=== PATIENT | female | born 1990 | race Caucasian/White ===

== ENCOUNTER 2021-04-17 10:15 | Emergency (ER) | payer BC, SELFPAY ==
[2021-04-17 10:41] VITALS: BP 134/87; PULSE 82; RESP 18; TEMP 36.7; O2SAT 99; BMI 19.1
--- NOTE | 2021-04-17 11:21 | ECG_ITS ---
Test Reason : CP Blood Pressure : / mmHG Vent. Rate : 071 BPM Atrial Rate : 071 BPM P-R Int : 156 ms QRS Dur : 098 ms QT Int : 416 ms P-R-T Axes : 067 088 042 degrees QTc Int : 452 ms Sinus rhythm with marked sinus arrhythmia Possible Left atrial enlargement Incomplete right bundle branch block Abnormal ECG No previous ECGs available Referred By: Diya Garcia Electronically Signed By:TANNER MENDIOLA
--- NOTE | 2021-04-17 11:43 | ED_ITS ---
HPI - General Adult General Chief complaint: General Medical Stated complaint: medication reaction Time Seen by Provider: 04/17/21 11:06 Source: patient Mode of arrival: ambulatory Limitations: no limitations History of Present Illness HPI narrative: 30-year-old female with a history of Crohn's disease who got her COVID booster 2 days ago presents with left sided chest pain that started at 5:30 a.m. this morning. The chest pain woke her from sleep. She feels a tightness in her left chest that radiates to her left back. When the pain woke her from sleep the pain was sharp and 7/10, now the pain is 4/10, and has been constant. The pain is worse with movement. She feels her chest is tight when she tries to take a deep breath. No shortness of breath, no nausea, no diaphoresis. Patient got her COVID booster at 11:00 a.m. 2 days ago, felt fatigued, miladys low- grade headache, and some arm pain. Her headache was gradual in onset of frontal headache 3/10, no visual changes, no stiff neck, no fevers. Reports she has worsening joint pain, that comes along with her rheumatological disease when she is having a flare. Patient is on Stelara for Crohn's, no family history of heart disease, states there is a clotting disorder on her mother side of the family, states her brother who has been treated with chemotherapy recently had a pulmonary embolism. complaint: chest pain Onset (ago): hour(s) (6) Radiation: back Severity: moderate Quality: stabbing Pain Consistency: constant Relieving factors: none Exacerbating factors: movement Associated symptoms: headaches Treatments prior to arrival: none Related Data Previous Rx's Medication Instructions Recorded ketorolac 10 mg tablet 10 mg PO Q6H 3 Days #12 tab 04/17/21 Allergies Allergy/AdvReac Type Severity Reaction Status Date / Time No Known Allergies Allergy Verified 04/17/21 10:54 Review of Systems Constitutional: Constitutional: Reports body ache(s), Denies chills, Reports fatigue, Denies fever(s) and Reports headache(s) Eyes: Eyes: Denies blurry vision, Denies change in vision and Denies diplopia ENT: Denies dizziness, Denies otalgia, Denies facial pain, Reports headache(s), Denies nasal congestion, Denies nasal discharge, Denies neck pain and Denies sore throat Cardiovascular: Cardiovascular: Reports chest pain, Reports chest pain at rest, Denies Epigastric Pain, Denies syncope, Denies leg edema, Denies lightheadedness, Denies radiating jaw, neck or arm pain, Denies palpitations, Denies dyspnea and Denies paroxysmal nocturnal dyspnea Respiratory: Respiratory: Denies chest congestion, Denies cough and Denies dyspnea Gastrointestinal: Gastrointestinal: Denies abdominal pain, Denies constipation, Denies diarrhea and Denies vomiting Genitourinary: Genitourinary: Reports no additional female genitourinary complaints Musculoskeletal: Musculoskeletal: Reports back pain, Reports arthralgias (generalized), Denies neck pain, Denies numbness, Denies stiffness and Denies tingling Neurologic: Denies dizziness, Denies syncope, Reports headache(s), Denies numbness and Denies tingling Endocrine: Endocrine: Reports fatigue and Denies palpitations PMFSH Past Medical History Medical History (Updated 04/17/21 @ 12:53 by CAROLYN Grace) Acute Crohn's disease Social History Social History Advance Directives: No Advance Directives Information Provided: No Patient : No Physical Exam Vital Signs: Vital Signs: Last Vital Signs Temp 98.1 F 04/17/21 10:41 Pulse 82 04/17/21 10:41 Resp 18 04/17/21 10:41 BP 134/87 04/17/21 10:41 Pulse Ox 99 04/17/21 10:41 Body Mass Index 19.1 Const: General: cooperative, healthy appearing, comfortable, no acute distress, well developed, alert and awake Nutritional Appearance: well nourished Orientation/consciousness: patient oriented x3 Limitations: no limitations HENMT: Head: Yes normal to inspection, Yes normocephalic and Yes atraumatic Face and sinus: Yes normal facial exam Mouth: Normal oral and palatal mucosa present Throat: Yes posterior oropharynx normal Eyes: Pupils: Equal, round and reactive pupils present EOM: EOMs intact bilaterally Neck: Neck: Yes normal visual inspection, Yes full ROM, Yes no lymphadenopathy, Yes no meningeal signs and Yes supple Chest: Chest palpation & inspection: normal inspection of the chest, abnormal inspection of the chest (Tender to palpate left costal junction) Negative for no swelling and no crepitus Resp: Effort & Inspection: normal respiratory effort Auscultation: clear to auscultation bilaterally, no crackles, no rales, no rhonchi and no wheezes Cardio: Rate: regular rate Rhythm: regular rhythm Heart sounds: S1 normal heart sound present and S2 normal heart sound present GI: Inspection: Yes normal to inspection Palpation (GI): Soft to palpation, nontender and no guarding : General: Yes no CVA tenderness Back/Spine/Pelvis: Back: no CVA tenderness Cervical Spine: normal cervical lordosis and cervical ROM normal Thoracic/Lumbar Spine: No thoracic spinal tenderness and No lumbar spinal tenderness Skin: General skin exam: no rashes or lesions noted Neuro: General: patient oriented x3 and no meningeal signs Cranial nerves: Yes Equal, round and reactive pupils present Extrem: General: Yes normal to inspection, Yes full ROM and Yes no clubbing, cyanosis or edema Course Course Course Narrative: A 22 year year old female presents with left-sided chest pain that woke her from sleep 2 days after having a COVID booster. Patient has Crohn's disease and is on Stelara. Patient has a family history of blood clots. Patient states worsening chest pain with deep breath. EKG is unremarkable. Getting D-dimer and troponin. Patient reports worsening joint pain since her COVID vaccination. On exam, chest pain is reproducible on left side of chest. Patient also has tenderness and the left thoracic paraspinous muscles. D-dimer and troponin are negative. Troponin drawn more than 6 hours after onset of chest pain, we do not need to repeat Patient's pain is reduced with Tylenol. Will give Toradol injection, have patient follow-up with PCP. Counseled patient that D-dimer is not 100%, and can miss blood clots. Counseled patient if she had increasing chest pain, felt short of breath, she needs to return to the emergency room Medical Decision Making Lab Data Labs: Lab Results 04/17/21 04/17/21 04/17/21 Range/Units 11:53 11:53 12:28 D-Dimer < 200 NG/ML Troponin I High Sens < 3.5 (<3.5-17.0) ng/L Urine Test NEGATIVE (NEGATIVE) ECG Data Interpretation: Sinus rhythm with a rate of 71, sinus arrhythmia. Pr interval 156, QRS 98, QTC 452, no ST elevations or depressions, no T-wave changes Discharge Plan Discharge Clinical Impression: Acute chest wall pain Patient Disposition: Home, Self-Care Instructions: Chest Wall Pain (ED) Additional Instructions: Please call your primary care provider and make a follow-up appointment. Please stay out of work for the next 2 days. Please fill the prescription for ketorolac and take for the next 3 days. As we discussed, the test for blood clots is not 100% accurate. Therefore, if you have worsening chest pain, shortness of breath, if you find you are unable to take a deep breaths, please return to the emergency room. Please return to emergency room for any new or concerning symptoms. Prescriptions: New ketorolac 10 mg tablet 10 mg PO Q6H 3 Days Qty: 12 RF: 0 Stand Alone Forms: Work/School Release
[2021-04-17 12:18] LABS: D Dimer < 200 NG/ML
[2021-04-17] MEDS: Acetaminophen 325 MG TABLET 975 MG PO (12:29)
[2021-04-17 12:39] LABS: Troponin-I High Sensitivity < 3.5 ng/L (<3.5-17.0)
[2021-04-17 12:50] LABS: UPreg QC Valid YES; Urine Pregnancy NEGATIVE (NEGATIVE)
[2021-04-17] MEDS: Ketorolac Tromethamine 15 MG/ML VIAL IM (13:15)
[2021-04-17 13:17] VITALS: RESP 18
== END 2021-04-17 13:37 | disposition home or self-care (01) ==
PROVIDERS: Physician Assistant; Emergency Provider Emergency Medicine; PCP Internal Medicine
DX: R07.89 Other chest pain (principal); K50.90 Crohn's disease, unspecified, without complications; Z79.899 Other long term (current) drug therapy
CPT/HCPCS: 36415; 81025; 84484; 85379; 93005; 96372; 99284; J1885

== ENCOUNTER 2021-04-21 08:15 | Emergency (ER) | payer BC, SELFPAY ==
--- NOTE | ~2021-04-21 | CT_ITS ---
EXAMINATION: CT ABDOMEN AND PELVIS WITHOUT CONTRAST CLINICAL INFORMATION: Right CVA tenderness COMPARISON: None TECHNIQUE: Multidetector volumetric imaging was performed from the superior aspect of the liver through the pubic symphysis. Sagittal and coronal reformatted images were obtained on the technologist's workstation. This CT examination was performed using dose optimization techniques as appropriate, variously including the following: *Automated exposure control *Adjustment of mA and/or kV according to patient size (this includes techniques or standardized protocols for targeted exams where dose is matched to indication/reason for exam; i.e. extremities or head) *Use of iterative reconstruction technique DLP: 383 mGy-cm FINDINGS: LUNG BASES: The visualized lung bases are unremarkable. LIVER, GALLBLADDER, AND BILIARY TREE: The liver is normal in size, shape, and attenuation. There is a 1 cm low-attenuation lesion in the right lobe of the liver axial image 24 series 3 probably representing a cyst. There is a second 5 mm peripheral low-attenuation lesion in the more inferior right lobe liver axial image 43 series 3. Hounsfield units without contrast measure 33 not compatible with a simple cyst. The liver is otherwise unremarkable. The gallbladder is unremarkable. There is no biliary duct dilatation. PANCREAS: Unremarkable. SPLEEN: Unremarkable. ADRENAL GLANDS: Unremarkable. KIDNEYS AND URETERS: The kidneys are normal in size, shape, and attenuation. No hydronephrosis, hydroureter, or calculi seen. No perinephric stranding. BLADDER: Unremarkable. GASTROINTESTINAL TRACT: There are postsurgical changes to the cecum/right colon. Small and large bowel is otherwise unremarkable. The appendix is not seen and may been removed. The appendix is unremarkable. ABDOMINAL WALL: No significant hernia is appreciated. LYMPH NODES: There are no enlarged lymph nodes. VASCULAR: Unremarkable. PELVIC VISCERA: There is trace fluid in the pelvis. The uterus and adnexa are otherwise unremarkable. OSSEOUS STRUCTURES: Unremarkable. CT/CT abdomen pelvis wo con IMPRESSION: No stone or hydronephrosis. Probable small liver cyst. 6 mm low-attenuation liver lesion not compatible with a cyst in the right lobe of the liver. This uncertain whether this represents a complex cyst or solid lesion. This could be further evaluated with liver MRI if clinically indicated. Surgical changes to the cecum/right colon. Trace fluid in the pelvis.
[2021-04-21 09:24] VITALS: BP 122/60; PULSE 50; RESP 18; TEMP 36.8; O2SAT 100; BMI 19.1
--- NOTE | 2021-04-21 09:41 | ED_ITS ---
HPI - Abdominal Pain General Chief Complaint: Urogenital-Female Stated Complaint: flank pain Time Seen by Provider: 04/21/21 09:35 Source: patient Mode of arrival: ambulatory Limitations: no limitations History of Present Illness HPI narrative: 30-year-old female with a past medical history of Crohn's disease currently on Stelara presenting to the ED with complaints of right back/right flank/right abdominal pain with associated nausea/vomiting since last night worse today that she describes as a stabbing sensation. Denies fevers, chills, dizziness, headaches, neck pain/stiffness, sore throat, cough, chest pain, shortness of breath, dysuria, hematuria, diarrhea, constipation, black or bloody stools, recent travel or sick contacts, bad food exposure or any other symptoms complaints or concerns at this time. MD elicited complaint: abdominal pain and flank pain Pertinent past history: other (Crohn's disease) Onset (ago): day(s) (Since last night) Pain Consistency: constant Location: R flank and other (Right back and abdomen) Severity: moderate Pain scale (0-10): 10 Quality: stabbing Radiation: none Exacerbating factors: nothing Relieving factors: nothing Associated symptoms: nausea and vomiting Related Data Date of Last Menstrual Period: 04/21/21 Patient : No Previous Rx's Medication Instructions Recorded ketorolac 10 mg tablet 10 mg PO Q6H 3 Days #12 tab 04/17/21 acetaminophen 500 mg tablet 1,000 mg PO QID PRN #14 tab 04/21/21 (Tylenol Extra Strength) cyclobenzaprine 10 mg tablet 10 mg PO Q8H #10 tab 04/21/21 ibuprofen 800 mg tablet 800 mg PO Q8H PRN #14 tab 04/21/21 ondansetron HCl 4 mg tablet 4 mg PO Q8H PRN #14 tab 04/21/21 (Zofran) Allergies Allergy/AdvReac Type Severity Reaction Status Date / Time No Known Allergies Allergy Verified 04/17/21 10:54 Review of Systems Review of Systems Constitutional : No Weight loss, No Fever, No Chills, No Night Sweats, No Fatigue, NoMalaise ENT/Mouth: No ear pain, No sore throat, No Difficulty swallowing Cardiovascular : No Chest Pain, No SOB, No Dyspnea on Exertion, No Orthopnea, NoEdema, No Palpitations Respiratory : No Cough, No Sputum, No Wheezing, No Dyspnea Gastrointestinal : Positive nausea/vomiting/abdominal pain/flank pain, No Diarrhea, No blood streaked emesis, No coffee-ground emesis, No gross luzma temesis, No blood streak stool, No gross hematochezia, No Melena Genitourinary : No irregular bleeding, No Dysuria, No Urinary Frequency, No Hematuria,No Urinary Incontinence, No Urgency, No Flank Pain Musculoskeletal : No joint pain, No Myalgias, No Joint Swelling Skin : No Skin Lesions, No rash Neuro : No Weakness, No Numbness, No Paresthesias, No Loss of Consciousness, NoDizziness, No Headache Psych : No Social Issues, Heme/Lymph: No Bruising, No Bleeding,No Lymphadenopathy Endocrine : No Polyuria, No Polydipsia, No Temperature Intolerance Yes all other systems are reviewed and are negative Physical Exam Vital Signs: Vital Signs: Last Vital Signs Temp 99.1 F 04/21/21 12:07 Pulse 43 L 04/21/21 12:07 Resp 14 04/21/21 12:07 BP 103/59 L 04/21/21 12:07 Pulse Ox 97 04/21/21 12:07 Body Mass Index 19.1 vital signs have been reviewed as normal and appeared to be correct. Blood pressure normal. Heart rate normal. Respiration rate normal. Temperature normal. Oxygen saturation normal. Appearance: Alert. Oriented X3. No acute distress. Head: Normal external exam. Normocephalic. Eyes: PERRLA. EOMI. Conjunctiva and sclera normal. Eyelids normal. ENT: Pharynx normal. Uvula midline. Moist mucous membranes. Neck: Normal inspection. Neck supple. FROM. No adenopathy. No meningeal signs. CVS: Normal heart rate and rhythm. Heart sound normal. No murmurs noted. Pulses normal throughout. Respiratory: No respiratory distress. Painless inspiration. Breath sounds normal. No wheezes/rales/rhonchi noted. Chest nontender. No accessory muscle usage noted or decreased air movement noted. Abdomen: Soft and moderate tenderness to palpation to right abdomen/right flank with guarded Nondistended. No rigidity. Bowel sounds normal in all 4 quadrants. No distention noted. No organomegaly noted. No visible injury noted. No rebound tenderness. Negative Rovsing sign. Negative obturator's sign. Ne gative psoas sign. Negative Zapata sign. Back: Positive Right CVA tenderness. No left CVA tenderness. Full range of motion noted. No rashes/lesion/induration/fluctuance or signs of infection noted. Skin: Skin warm and dry. Normal skin color. Normal skin turgor. No rashes/lesions/lacerations noted. Extremities: Extremities exhibit normal range of motion. Extremities nontender. Neuro: Oriented X 3. No motor deficit. No sensory deficit. Reflexes normal. Normal steady gait. Course Course Course Narrative: 9:35am - 30-year-old female with a past medical history of Crohn's disease currently on Stelara presenting to the ED with complaints of right back/right flank/right abdominal pain with associated nausea/vomiting since last night worse today that she describes as a stabbing sensation. Plan: Labs, UA, UHCG, CT scan abdomen pelvis without IV contrast. Provide a L of IV fluids with 30 mg of IV Toradol and 4 mg of Zofran and re-evaluate. Reevaluation(s) Reevaluation #1: - labs reviewed and all within normal limits. UA within normal limits no evidence of UTI. Negative test. Patient negative for COVID/RSV/flu. - CT scan of abdomen and pelvis without IV contrast revealed probable small liver cyst 6 mm they are recommending outpatient liver MRI if indicated. Otherwise no other acute processes. Patient does not have an appendix. - therefore patient most likely viral syndrome versus muscle strain will DC home with symptomatic treatment along with instructions to return if any new or wor sening symptoms to follow up with her primary care provider with the CT scan results that I printed out and gave her in her hand for further evaluation treatment for her possible liver cyst. Patient understands agrees this plan. Time: 12:54 [facility] - Abdominal Pain Medical Records Attestation: I reviewed the patient's medical records. Lab Data Attestation: I reviewed the patient's lab results. Result diagrams: 04/21/21 10:15 04/21/21 10:15 Labs: Lab Results 04/21/21 04/21/21 04/21/21 Range/Units 10:14 10:14 10:15 WBC 9.4 (4.8-10.8) X10*3/uL RBC 3.71 L (4.20-5.50) X10*6/uL Hgb 11.9 L (12.0-16.0) g/dl Hct 35.1 L (37-47) % MCV 94.6 (80-98) fL MCH 32.1 (27.0-33.0) pg MCHC 33.9 (31.0-35.0) g/dl RDW 12.6 (11.0-16.0) % Plt Count 235 (160-400) X10*3/uL MPV 9.6 (9.4-12.3) fL Immature Gran % (Auto) 0.3 (0.0-0.4) % Neut % (Auto) 79.8 H (45-73) % Lymph % (Auto) 11.7 L (20-40) % [place] % (Auto) 7.5 (2-11) % Eos % (Auto) 0.4 (0-4) % Baso % (Auto) 0.3 (0-2) % Lymph # (Auto) 1.1 L (1.2-4.9) X10*3/uL [place] # (Auto) 0.7 (0.1-1.2) X10*3/uL Eos # (Auto) 0.0 (0.0-0.4) X10*3/uL Baso # (Auto) 0.0 (0.0-0.2) X10*3/uL Abs Immat Gran (auto) 0.03 (0.00-0.03) X10*3/uL Absolute Neuts (auto) 7.5 (2.0-8.3) X10*3/uL Absolute Nucleated RBC 0.000 (0.0-0.012) X10*3/uL Nucleated RBC % (auto) 0.0 (0.0-0.2) /100WBC Sodium (135-145) mmol/L Potassium (3.3-5.1) mmol/L Chloride (96-108) mmol/L Carbon Dioxide (22-29) mmol/L Anion Gap (12-20) BUN (9-16) mg/dL Creatinine (0.5-1.4) mg/dL Estim Creat Clear Calc Estimated GFR Random Glucose (60-115) mg/dL Calcium (8.4-10.2) mg/dL Magnesium (1.6-2.6) mg/dL Total Bilirubin (0.0-1.0) mg/dL AST (5-31) U/L ALT (0-31) U/L Alkaline Phosphatase (39-117) U/L Total Protein (6.5-8.0) g/dL Albumin (3.5-5.0) g/dL Lipase (8-78) U/L Urine Color Urine Appearance Urine pH (5.0-8.0) Ur Specific [place] (1.005-1.025) Urine Protein (NEG-TRACE) MG/DL Urine Glucose (UA) (NEG) MG/DL Urine Ketones (NEG) MG/DL Urine Blood (NEG) Urine Nitrite (NEG) Ur Leukocyte Esterase (NEG) Urine RBC (0) /HPF Urine WBC (0-4) /HPF Ur Squamous Epith Cells /LPF Urine Bacteria /LPF Urine Test NEGATIVE (NEGATIVE) Coronavirus (PCR) NEGATIVE (Negative) Influenza Type A (PCR) NEGATIVE (Negative) Influenza Type B (PCR) NEGATIVE (Negative) RSV RNA Qual (PCR) NEGATIVE (Negative) 04/21/21 04/21/21 04/21/21 Range/Units 10:15 10:15 10:16 WBC (4.8-10.8) X10*3/uL RBC (4.20-5.50) X10*6/uL Hgb (12.0-16.0) g/dl Hct (37-47) % MCV (80-98) fL MCH (27.0-33.0) pg MCHC (31.0-35.0) g/dl RDW (11.0-16.0) % Plt Count (160-400) X10*3/uL MPV (9.4-12.3) fL Immature Gran % (Auto) (0.0-0.4) % Neut % (Auto) (45-73) % Lymph % (Auto) (20-40) % [place] % (Auto) (2-11) % Eos % (Auto) (0-4) % Baso % (Auto) (0-2) % Lymph # (Auto) (1.2-4.9) X10*3/uL [place] # (Auto) (0.1-1.2) X10*3/uL Eos # (Auto) (0.0-0.4) X10*3/uL Baso # (Auto) (0.0-0.2) X10*3/uL Abs Immat Gran (auto) (0.00-0.03) X10*3/uL Absolute Neuts (auto) (2.0-8.3) X10*3/uL Absolute Nucleated RBC (0.0-0.012) X10*3/uL Nucleated RBC % (auto) (0.0-0.2) /100WBC Sodium 140 (135-145) mmol/L Potassium 3.8 (3.3-5.1) mmol/L Chloride 109 H (96-108) mmol/L Carbon Dioxide 24 (22-29) mmol/L Anion Gap 11 L (12-20) BUN 10 (9-16) mg/dL Creatinine 0.93 (0.5-1.4) mg/dL Estim Creat Clear Calc 73.9 Estimated GFR > 60 Random Glucose 104 (60-115) mg/dL Calcium 8.6 (8.4-10.2) mg/dL Magnesium 2.3 (1.6-2.6) mg/dL Total Bilirubin 0.7 (0.0-1.0) mg/dL AST 16 (5-31) U/L ALT 9 (0-31) U/L Alkaline Phosphatase 64 (39-117) U/L Total Protein 6.4 L (6.5-8.0) g/dL Albumin 3.7 (3.5-5.0) g/dL Lipase 13 (8-78) U/L Urine Color STRAW Urine Appearance CLEAR Urine pH 6.0 (5.0-8.0) Ur Specific [place] <= 1.005 (1.005-1.025) Urine Protein 1+ H (NEG-TRACE) MG/DL Urine Glucose (UA) NEG (NEG) MG/DL Urine Ketones NEG (NEG) MG/DL Urine Blood 2+ H (NEG) Urine Nitrite NEG (NEG) Ur Leukocyte Esterase NEG (NEG) Urine RBC 0-2 (0) /HPF Urine WBC 0-2 (0-4) /HPF Ur Squamous Epith Cells 3+ /LPF Urine Bacteria TRACE /LPF Urine Test (NEGATIVE) Coronavirus (PCR) (Negative) Influenza Type A (PCR) (Negative) Influenza Type B (PCR) (Negative) RSV RNA Qual (PCR) (Negative) Imaging Data CT scan abdomen pelvis without IV contrast: Attestation: I personally reviewed and interpreted this imaging study as follows: Radiologist's impression: FINDINGS: LUNG BASES: The visualized lung bases are unremarkable.? LIVER, GALLBLADDER, AND BILIARY TREE: The liver is normal in size, shape, and attenuation. There is a 1 cm low-attenuation lesion in the right lobe of the liver axial image 24 series 3 probably representing a cyst. There is a second 5 mm peripheral low-attenuation lesion in the more inferior right lobe liver axial image 43 series 3. Hounsfield units without contrast measure 33 not compatible with a simple cyst. The liver is otherwise unremarkable. The gallbladder is unremarkable. There is no biliary duct dilatation. PANCREAS: Unremarkable.? SPLEEN: Unremarkable.? ADRENAL GLANDS: Unremarkable.? KIDNEYS AND URETERS: The kidneys are normal in size, shape, and attenuation. No hydronephrosis, hydroureter, or calculi seen. No perinephric stranding. ? BLADDER: Unremarkable.? GASTROINTESTINAL TRACT: There are postsurgical changes to the cecum/right colon. Small and large bowel is otherwise unremarkable. The appendix is? not seen and may been removed. The appendix is unremarkable.? ABDOMINAL WALL: No significant hernia is appreciated.? LYMPH NODES: There are no enlarged lymph nodes. VASCULAR: Unremarkable. PELVIC VISCERA: There is trace fluid in the pelvis. The uterus and adnexa are otherwise unremarkable. OSSEOUS STRUCTURES: Unremarkable.? CT/CT abdomen pelvis wo con IMPRESSION: No stone or hydronephrosis. Probable small liver cyst. 6 mm low-attenuation liver lesion not compatible with a cyst in the right lobe of the liver. This uncertain whether this represents a complex cyst or solid lesion. This could be further evaluated with liver MRI if clinically indicated. Surgical changes to the cecum/right colon. Trace fluid in the pelvis.? Discharge Plan Discharge Clinical Impression: Nausea & vomiting, Abdominal pain, Abnormal computed tomography of abdomen and pelvis, Liver cyst Patient Disposition: Home, Self-Care Instructions: Acute Nausea and Vomiting (ED), Abdominal Pain (ED), Computed Tomography Scan (ED) Prescriptions: New cyclobenzaprine 10 mg tablet 10 mg PO Q8H Qty: 10 RF: 0 ibuprofen 800 mg tablet 800 mg PO Q8H PRN (Reason: pain) Qty: 14 RF: 0 ondansetron HCl [Zofran] 4 mg tablet 4 mg PO Q8H PRN (Reason: nausea and vomiting) Qty: 14 RF: 0 acetaminophen [Tylenol Extra Strength] 500 mg tablet 1,000 mg PO QID PRN (Reason: fever or pain) Qty: 14 RF: 0 No Action ketorolac 10 mg tablet 10 mg PO Q6H 3 Days Qty: 12 RF: 0 Referrals: Leda Ferrera MD [Primary Care Provider] - 2 days (LIVER MRI due to abnormal CT scan abdomen pelvis ) Print Language: [place] [facility] Past Medical History Attestation statement: The following information was validated with the patient. Medical History Acute Crohn's disease Date of Last Menstrual Period: 04/21/21 Social History Social History Advance Directives: No Advance Directives Information Provided: No Patient : No
[2021-04-21 10:22] LABS: MANUAL DIFF FLAG NO
[2021-04-21 10:32] LABS: Basophils Percent Auto 0.3 % (0-2); Eosinophils Percent Auto 0.4 % (0-4); Hematocrit 35.1 % (37-47); Hemoglobin 11.9 g/dl (12.0-16.0); Imm Gran Abs Auto 0.03 X10*3/uL (0.00-0.03); Imm Gran Pct Auto 0.3 % (0.0-0.4); Lymphocytes Absolute Auto 1.1 X10*3/uL (1.2-4.9); Lymphocytes Percent Auto 11.7 % (20-40); Mean Corpuscular HGB Conc 33.9 g/dl (31.0-35.0); Mean Corpuscular Hemoglobin 32.1 pg (27.0-33.0); Mean Corpuscular Volume 94.6 fL (80-98); Mean Platelet Volume 9.6 fL (9.4-12.3); Monocytes Absolute Auto 0.7 X10*3/uL (0.1-1.2); Monocytes Percent Auto 7.5 % (2-11); Neutrophils Absolute Auto 7.5 X10*3/uL (2.0-8.3); Neutrophils Percent Auto 79.8 % (45-73); Platelet Count 235 X10*3/uL (160-400); Red Blood Count 3.71 X10*6/uL (4.20-5.50); Red Cell Distribution Width 12.6 % (11.0-16.0); White Blood Count 9.4 X10*3/uL (4.8-10.8)
[2021-04-21 10:32] LABS: Glucose Urine UA NEG (NEG); Leukocyte Esterase Urine NEG (NEG); Nitrite Urine NEG (NEG); Specific Gravity - Urine <= 1.005 (1.005-1.025); UACC Culture Trigger NO; Urine Blood 2+ (NEG); Urine Ketones NEG (NEG); Urine Protein 1+ MG/DL (NEG-TRACE)
[2021-04-21 10:33] LABS: UPreg QC Valid YES; Urine Pregnancy NEGATIVE (NEGATIVE)
[2021-04-21 10:38] LABS: Appearance Urine CLEAR; Color Urine STRAW
[2021-04-21 10:49] LABS: Bacteria Urine TRACE /LPF; RBC Urine 0-2 /HPF (0); Squamous Epithelial Cell Urine 3+ /LPF; WBC Urine 0-2 /HPF (0-4)
[2021-04-21] MEDS: 0.9 % Sodium Chloride 1,000 ML 999 ML IVCONT (10:50)
[2021-04-21] MEDS: ondansetron HCL 4 MG/2 ML VIAL IVPUSH (10:50)
[2021-04-21] MEDS: Ketorolac Tromethamine 15 MG/ML VIAL 30 MG IVPUSH (10:50)
[2021-04-21 10:59] LABS: Lipase 13 U/L (8-78); Magnesium 2.3 mg/dL (1.6-2.6)
[2021-04-21 11:00] LABS: Alanine Aminotransferase 9 U/L (0-31); Albumin Level 3.7 g/dL (3.5-5.0); Alkaline Phosphatase 64 U/L (39-117); Anion Gap 11 (12-20); Aspartate Amino Transferase 16 U/L (5-31); Bilirubin Total 0.7 mg/dL (0.0-1.0); Blood Urea Nitrogen 10 mg/dL (9-16); Calcium 8.6 mg/dL (8.4-10.2); Carbon Dioxide 24 mmol/L (22-29); Chloride 109 mmol/L (96-108); Creatinine Clr Calc Pharmacy 73.9; Estimated Glomerular Filt Rate > 60; Glucose Random 104 mg/dL (60-115); Potassium 3.8 mmol/L (3.3-5.1); Sodium 140 mmol/L (135-145); Total Protein 6.4 g/dL (6.5-8.0)
[2021-04-21 11:31] LABS: Influenza A PCR NEGATIVE (Negative); Influenza B PCR NEGATIVE (Negative); Resp Syncy Virus RNA Qual PCR NEGATIVE (Negative); SARS COV2 PCR INHOUSE NEGATIVE (Negative)
[2021-04-21 12:07] VITALS: BP 103/59; PULSE 43; RESP 14; TEMP 37.3; O2SAT 97
== END 2021-04-21 13:55 | disposition home or self-care (01) ==
PROVIDERS: Physician Assistant Medical; Emergency Provider Emergency Medicine; PCP Internal Medicine
DX: R10.9 Unspecified abdominal pain (principal); R11.2 Nausea with vomiting, unspecified; R93.5 Abnormal findings on diagnostic imaging of other abdominal regions, including retroperitoneum; K76.89 Other specified diseases of liver; K50.90 Crohn's disease, unspecified, without complications; Z20.822 Contact with and (suspected) exposure to COVID-19
CPT/HCPCS: 0241U; 36415; 74176; 80053; 81001; 81025; 83690; 83735; 85025; 96361; 96374; 96375; 99284; J1885; J2405

== ENCOUNTER 2023-09-08 11:50 | Emergency (ER) | payer OTHER, SELFPAY ==
--- NOTE | ~2023-09-08 | CT_ITS ---
EXAMINATION: CT ABDOMEN AND PELVIS WITH CONTRAST CLINICAL INFORMATION: Abdominal pain. History of Crohn's disease. COMPARISON: CT abdomen pelvis April 21, 2021 TECHNIQUE: Multidetector volumetric images were obtained from the superior aspect of the liver through the pubic symphysis following administration 85 mL of Omnipaque 350 intravenous contrast. Sagittal and coronal reformatted images were obtained on the technologist's workstation. Oral contrast: No This CT examination was performed using dose optimization techniques as appropriate, variously including the following: *Automated exposure control *Adjustment of mA and/or kV according to patient size (this includes techniques or standardized protocols for targeted exams where dose is matched to indication/reason for exam; i.e. extremities or head) *Use of iterative reconstruction technique DLP: 319 mGy-cm FINDINGS: LUNG BASES: The visualized lung bases are unremarkable. LIVER, GALLBLADDER, AND BILIARY TREE: Multiple small hepatic cysts. No suspicious liver lesions. No intrahepatic bile duct dilatation. The gallbladder is unremarkable with no evidence of radiopaque gallstones, gallbladder wall thickening, or obvious pericholecystic inflammatory changes. PANCREAS: Unremarkable. SPLEEN: Unremarkable. ADRENAL GLANDS: Unremarkable. KIDNEYS AND URETERS: The kidneys are normal in size, shape, and attenuation. No hydronephrosis, hydroureter, or calculi seen. No perinephric stranding. BLADDER: Unremarkable. GASTROINTESTINAL TRACT: Postsurgical changes of the right colon and cecum. No acute abnormality. No bowel obstruction. No bowel wall thickening or edema appendix may be surgically absent. ABDOMINAL WALL: No significant hernia is appreciated. LYMPH NODES: Normal. VASCULAR: Unremarkable. PELVIC VISCERA: Uterus is anteverted. No adnexal abnormality. Small cyst associated with the vaginal vault. OSSEOUS STRUCTURES: Unremarkable. CT/CT abdomen pelvis w IV con IMPRESSION: No acute abnormality CT scan abdomen pelvis. Fleischner guidelines were followed.
[2023-09-08 12:14] VITALS: BP 129/93; PULSE 74; RESP 16; TEMP 36.7; O2SAT 99; BMI 19.1
--- NOTE | 2023-09-08 12:14 | ED_ITS ---
HPI - General Adult General Chief complaint: Abdominal Pain Stated complaint: Referred by dr Bernabe severe abd pain Time Seen by Provider: 09/08/23 19:00 Source: patient Mode of arrival: ambulatory Limitations: no limitations History of Present Illness HPI narrative: Patient with history of Crohn's disease on Stelara last flare-up was in 02/11 complaining of pain in upper abdomen since yesterday 06:00 with nausea slight vomiting no bowel movement for last 4 days no blood in the stool no fever or chills patient feels similar pain when she had flare-up in the past Related Data Home Medications Medication Instructions Recorded Confirmed bupropion HCl 75 mg tablet 75 mg PO DAILY 09/08/23 09/08/23 cyanocobalamin (vitamin B-12) 1,000 mcg subcut QMONTH 09/08/23 09/08/23 1,000 mcg/mL injection solution ustekinumab 90 mg/mL subcutaneous 90 mg subcut Q8W 09/08/23 09/08/23 syringe (Stelara) Previous Rx's Medication Instructions Recorded dicyclomine 20 mg tablet 20 mg PO Q8-10H PRN abdominal 09/09/23 pain #20 tabs ondansetron 4 mg disintegrating 4 mg PO Q6-8H PRN nausea and 09/09/23 tablet vomiting #10 tabs Allergies Allergy/AdvReac Type Severity Reaction Status Date / Time No Known Allergies Allergy Verified 09/08/23 12:13 Review of Systems 2 Review of Systems: Yes all other systems are reviewed and are negative PMFSH Past Medical History Onset Date is defined in the Problem List Problems that require an onset date and time if occurred within 24 hrs of arrival to the ED Aortic Dissection and Rupture; Neurologic impairment; Cardiopulmonary Arrest; Endotracheal Intubation; Insertion or Replacement of Mechanical Circulatory Assist Device Medical History Acute Crohn's disease Social History Social History Smoked in Last 30 Days: No Use of substances other than those prescribed or required for medical reasons: Yes Substance Use Type: Marijuana Substance Use Frequency: Weekly Last Used Substance: Days (ago) Advance Directives: No Patient : No Physical Exam ED Vital Signs: Vital Signs - 24 hr 09/08/23 12:14 09/08/23 15:07 Temperature 98.0 F 97.6 F Pulse Rate 74 73 Respiratory Rate 16 16 Blood Pressure 129/93 H 139/91 H Pulse Oximetry 99 99 Oxygen Delivery Method Room Air Room Air BMI result Body Mass Index 19.1 Appearance: Alert. Oriented X3. No acute distress. ENT: Pharynx normal. Oral Mucosa moist Neck: Normal inspection. Neck supple. CVS: Normal heart rate and rhythm. Pulses normal. Respiratory: No respiratory distress. Equal air entry bilateral, no wheezing/rales/rhonchi Abdomen: Soft diffuse tenderness no rebound tenderness or guarding Bowel sounds are present, no mass palpable, no CVA tenderness Skin: Skin warm and dry. Normal skin color. Normal skin turgor. Extremities: No lower extremity edema. No calf tenderness Neuro: Oriented X 3. No motor deficit. Course Course Course Narrative: RME- 32 year old female presents for evaluation of abdominal pain and constipation. She reports a history of Chron's disease followed by GI at [facility] in [place]. She reports being on Stelera every 8 weeks. Patient has had severe abdominal pain for the last 30 hours. She reports she has not had a bowel movement for the last 3 days. Plan for labs Medications Administered Discontinued Medications Generic Name Dose Route Start Last Admin Trade Name Freq PRN Reason Stop Dose Admin Hydromorphone HCl 1 mg 09/08/23 21:40 09/08/23 22:00 Hydromorphone Hcl 1 Mg/Ml Syringe IVPUSH 09/08/23 21:41 1 mg ONCE ONE Administration Protocol Sodium Chloride 1,000 mls @ 999 mls/hr 09/08/23 19:10 09/08/23 20:18 Ns IV 09/08/23 20:10 999 mls/hr .Q1H1M ONE Administration Iohexol 85 ml 09/08/23 20:49 09/08/23 20:50 Iohexol 350 Mg/Ml 100 Ml Infus..Btl IV 09/08/23 20:50 85 ml ONCE ONE Administration Morphine Sulfate 4 mg 09/08/23 19:10 09/08/23 20:17 Morphine Sulfate 4 Mg/Ml Cartridge IVPUSH 09/08/23 19:11 4 mg ONCE ONE Administration Protocol Ondansetron HCl 4 mg 09/08/23 15:08 09/08/23 15:10 Ondansetron Odt 4 Mg Tab.Rapdis SUBLINGUAL 09/08/23 15:09 4 mg ONCE ONE Administration Ondansetron HCl 4 mg 09/08/23 19:49 09/08/23 20:17 Ondansetron Hcl 4 Mg/2 Ml Vial IVPUSH 09/08/23 19:50 4 mg ONCE ONE Administration Ondansetron HCl 4 mg 09/09/23 00:00 09/09/23 00:38 Ondansetron Hcl 4 Mg/2 Ml Vial IVPUSH 09/09/23 00:01 4 mg ONCE ONE Administration Medical Decision Making Medical Decision Making 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 09/08/23 13:20 09/08/23 13:20 Labs: Lab Results 09/08/23 Range/Units 13:20 WBC 10.9 H (4.8-10.8) X10*3/uL RBC 4.34 (4.20-5.50) X10*6/uL Hgb 13.6 (12.0-16.0) g/dl Hct 40.2 (37.0-47.0) % MCV 92.6 (80.0-98.0) fL MCH 31.3 (27.0-33.0) pg MCHC 33.8 (31.0-35.0) g/dl RDW 12.6 (11.0-16.0) % Plt Count 326 (160-400) X10*3/uL MPV 9.2 L (9.4-12.3) fL Immature Gran % (Auto) 0.4 (0.0-0.4) % Neut % (Auto) 84.1 H (45-73) % Lymph % (Auto) 9.4 L (20-40) % [place] % (Auto) 5.5 (2-11) % Eos % (Auto) 0.4 (0-4) % Baso % (Auto) 0.2 (0-2) % Lymph # (Auto) 1.0 L (1.2-4.9) X10*3/uL [place] # (Auto) 0.6 (0.1-1.2) X10*3/uL Eos # (Auto) 0.0 (0.0-0.4) X10*3/uL Baso # (Auto) 0.0 (0.0-0.2) X10*3/uL Abs Immat Gran (auto) 0.04 H (0.00-0.03) X10*3/uL Absolute Neuts (auto) 9.2 H (2.0-8.3) x10*3/uL Absolute Nucleated RBC 0.000 (0.0-0.012) X10*3/uL Nucleated RBC % (auto) 0.0 (0.0-0.2) /100WBC ESR 7 (0-20) MM/HR Sodium 139 (135-145) mmol/L Potassium 3.8 (3.3-5.1) mmol/L Chloride 106 (96-108) mmol/L Carbon Dioxide 25 (22-29) mmol/L Anion Gap 12 (12-20) BUN 10 (9-16) mg/dL Creatinine 0.73 (0.5-1.4) mg/dL Estim Creat Clear Calc 92.7 Estimated GFR > 60 Random Glucose 89 (60-115) mg/dL Calcium 9.4 D (8.4-10.2) mg/dL Total Bilirubin 0.6 (0.0-1.0) mg/dL AST 18 (5-31) U/L ALT 12 (0-31) U/L Alkaline Phosphatase 79 (39-117) U/L C-Reactive Protein < 0.04 (< or = 0.50) mg/dL Total Protein 7.6 (6.5-8.0) g/dL Albumin 4.5 (3.5-5.0) g/dL Lipase 38 (8-78) U/L Beta HCG, Quant < 2 mIU/mL Discharge Plan Discharge Clinical Impression: Abdominal pain, Crohn disease Patient Disposition: Home, Self-Care Instructions: Crohn Disease (ED), Abdominal Pain (ED) Additional Instructions: Cause of your abdominal pain is not clear, CT scan was negative for acute pathology Follow-up with vice president media relations Continue medication as prescribed Dicyclomine for abdominal pain every 8 hours as needed Zofran for nausea Prescriptions: New dicyclomine 20 mg tablet 20 mg PO Q8-10H PRN (Reason: abdominal pain) Qty: 20 0RF ondansetron 4 mg tablet,disintegrating 4 mg PO Q6-8H PRN (Reason: nausea and vomiting) Qty: 10 0RF No Action cyanocobalamin (vitamin B-12) 1,000 mcg/mL solution 1,000 mcg subcut QMONTH bupropion HCl 75 mg tablet 75 mg PO DAILY Stelara 90 mg/mL syringe 90 mg subcut Q8W Interventions: ED Discharge Assessment Last Done: 09/09/23 00:46 Discharge Date/Time: 09/09/23 00:46
[2023-09-08 13:24] LABS: MANUAL DIFF FLAG NO
[2023-09-08 13:29] LABS: Basophils Percent Auto 0.2 % (0-2); Eosinophils Percent Auto 0.4 % (0-4); Hematocrit 40.2 % (37.0-47.0); Hemoglobin 13.6 g/dl (12.0-16.0); Imm Gran Abs Auto 0.04 X10*3/uL (0.00-0.03); Imm Gran Pct Auto 0.4 % (0.0-0.4); Lymphocytes Percent Auto 9.4 % (20-40); Mean Corpuscular HGB Conc 33.8 g/dl (31.0-35.0); Mean Corpuscular Hemoglobin 31.3 pg (27.0-33.0); Mean Corpuscular Volume 92.6 fL (80.0-98.0); Mean Platelet Volume 9.2 fL (9.4-12.3); Monocytes Absolute Auto 0.6 X10*3/uL (0.1-1.2); Monocytes Percent Auto 5.5 % (2-11); Neutrophils Absolute Auto 9.2 x10*3/uL (2.0-8.3); Neutrophils Percent Auto 84.1 % (45-73); Platelet Count 326 X10*3/uL (160-400); Red Blood Count 4.34 X10*6/uL (4.20-5.50); Red Cell Distribution Width 12.6 % (11.0-16.0); White Blood Count 10.9 X10*3/uL (4.8-10.8)
[2023-09-08 13:42] LABS: Alanine Aminotransferase 12 U/L (0-31); Albumin Level 4.5 g/dL (3.5-5.0); Alkaline Phosphatase 79 U/L (39-117); Anion Gap 12 (12-20); Aspartate Amino Transferase 18 U/L (5-31); Bilirubin Total 0.6 mg/dL (0.0-1.0); Blood Urea Nitrogen 10 mg/dL (9-16); C Reactive Protein < 0.04 mg/dL (< or = 0.50); Calcium 9.4 mg/dL (8.4-10.2); Carbon Dioxide 25 mmol/L (22-29); Chloride 106 mmol/L (96-108); Creatinine Clr Calc Pharmacy 92.7; Estimated Glomerular Filt Rate > 60; Glucose Random 89 mg/dL (60-115); Lipase 38 U/L (8-78); Potassium 3.8 mmol/L (3.3-5.1); Sodium 139 mmol/L (135-145); Total Protein 7.6 g/dL (6.5-8.0)
[2023-09-08 13:47] LABS: HCG Quantitative < 2 mIU/mL
[2023-09-08 14:13] LABS: Erythrocyte Sedimentation Rate 7 MM/HR (0-20)
[2023-09-08 15:07] VITALS: BP 139/91; PULSE 73; RESP 16; TEMP 36.4; O2SAT 99
[2023-09-08] MEDS: Ondansetron ODT 4 MG TAB.RAPDIS SUBLINGUAL (15:10)
[2023-09-08 19:24] VITALS: BP 147/83; PULSE 57; RESP 16; TEMP 36.8; O2SAT 97
--- NOTE | 2023-09-08 19:37 | MHC.EDTECH ---
This pct just assumed care of pt ,vitals taken,Pt said she not able to give urine sample at this time .
[2023-09-08] MEDS: ondansetron HCL 4 MG/2 ML VIAL IVPUSH (20:17)
[2023-09-08] MEDS: Morphine Sulfate 4 MG/ML CARTRIDGE IVPUSH (20:17)
[2023-09-08] MEDS: 0.9 % Sodium Chloride 1,000 ML 999 ML IV (20:18)
[2023-09-08] MEDS: iohexoL 350 MG/ML 100 ML INFUS..BTL 85 ML IV (20:50)
--- NOTE | 2023-09-08 21:40 | PC.NURSE ---
Assumed care of pt at 1900. PT reports she has a history of crohns and has been in pain x3 days with no bowel movement since 09/05. She currently taking stelara q7w. 20 g IV line placed in right AC. IV fluids running, PT medicated as per OCT. Call dalton within reach. Plan of care ongoing .
[2023-09-08 21:41] VITALS: BP 136/84; PULSE 66; RESP 16; TEMP 36.8; O2SAT 96
[2023-09-08] MEDS: HYDROmorphone HCl 1 MG/ML SYRINGE IVPUSH (22:00)
[2023-09-09 00:38] VITALS: BP 143/94; PULSE 83; RESP 18; TEMP 36.4; O2SAT 100
[2023-09-09] MEDS: ondansetron HCL 4 MG/2 ML VIAL IVPUSH (00:38)
== END 2023-09-09 00:46 | disposition home or self-care (01) ==
PROVIDERS: Physician Assistant; Emergency Provider Internal Medicine; PCP Internal Medicine
DX: K50.90 Crohn's disease, unspecified, without complications (principal); R10.10 Upper abdominal pain, unspecified; R11.2 Nausea with vomiting, unspecified; Z79.899 Other long term (current) drug therapy
CPT/HCPCS: 36415; 74177; 80053; 83690; 84702; 85025; 85652; 86140; 96374; 96375; 96376; 99284; J1170; J2270; J2405; Q9967